=== PATIENT | male | born 2000 | race Two or more races ===

== ENCOUNTER 2025-01-30 15:20 | Emergency (ER) | payer MEDICAID, SELFPAY ==
[2025-01-30 15:41] VITALS: BP 137/83; PULSE 58; RESP 18; TEMP 37.1; O2SAT 97; BMI 26.4
--- NOTE | 2025-01-30 15:45 | XR_ITS ---
Examination: Hand, right 3 views Technique: Hand AP, oblique, lateral 3 views right Date and time of exam: January 30, 2025 1551 hours INDICATIONS: Injury to the right hand today, right hand pain FINDINGS: No acute fracture Or dislocation No foreign body IMPRESSION: No acute fracture
--- NOTE | 2025-01-30 15:45 | EDNOTE_ITS ---
Upper Extremity Injury RME/HPI General Chief Complaint: Extremity Injury, Upper Stated Complaint: RIGHT HAND PAIN Time Seen by Provider: 01/30/25 15:23 Arrival date/time: 01/30/25 15:20 24-year-old male with no significant medical problems presents to the emergency from today for complaints of injury to the right hand patient reports he punched something today patient has abrasions to the right hand and reports pain with moving his fingers Limitations: no limitations Related Data Previous Rx's ?Medication ?Instructions ?Recorded bacitracin 500 unit/gram topical 1 applic topical TID 7 days #28.4 01/30/25 ointment grams ibuprofen 800 mg tablet 800 mg PO TID PRN pain #30 t abs 01/30/25 Allergies Allergy/AdvReac Type Severity Reaction Status Date / Time No Known Allergies Allergy Verified 01/30/25 15:22 Review of Systems Review of Systems Systems Reviewed: All systems reviewed, normal except as documented Constitutional Constitutional: Reports system reviewed and no additional complaints, except as documented, Denies fever(s) and Denies headache(s) Eyes Eyes: Reports system reviewed and no additional complaints, except as documented and Denies blurry vision ENT Ears, Nose, Mouth, and Throat: Reports system reviewed and no additional complaints, except as documented, Denies headache(s), Denies nasal congestion and Denies nasal discharge Cardiovascular Cardiovascular: Reports system reviewed and no additional complaints, except as documented, Denies chest pain and Denies dyspnea Respiratory Respiratory: Reports system reviewed and no additional complaints, except as documented, Denies chest congestion, Denies cough and Denies dyspnea Gastrointestinal Gastrointestinal: Reports system reviewed and no additional complaints, except as documented and Denies abdominal pain Musculoskeletal Musculoskeletal: Reports system reviewed and no additional complaints, except as documented, Reports arthralgias, Denies deformity, Denies joint swelling and Reports other (Pain right hand) Integumentary/Breasts Skin/Breast: Reports system reviewed and no additional complaints, except as documented, Denies rash and Reports wounds (Abrasions right hand) Neurologic Neurologic: Reports system reviewed and no additional complaints, except as documented, Reports as per HPI and Denies headache(s) Past Medical History Social History SMOKING STATUS: Never smoker ED Exam General Limitations: Present no limitations General appearance: Present alert and in no apparent distress Head Head exam: Present atraumatic Eye Eye exam: Present normal appearance, PERRL and EOMI ENT ENT exam: Present normal exam, normal oropharynx and mucous membranes moist Neck Neck exam: Present normal inspection, full ROM and trachea midline Chest Chest inspection: Present normal inspection and symmetric chest wall rise Respiratory Respiratory exam: Present normal lung sounds bilaterally Cardiovascular Cardiovascular exam: Present regular rate, normal rhythm and normal heart sounds Abdominal Exam Abdominal exam: Present soft and normal bowel sounds Extremities Exam Extremities exam: Present tenderness, normal capillary refill and joint swelling Back Exam Back exam: Present normal inspection and full ROM Neurological Exam Neurological exam: Present alert, oriented X3 and CN II-XII intact Psychiatric Psychiatric exam: Present normal affect and normal mood Skin Skin exam: Present warm, dry and other (Abrasions right hand) Course Quality Measures none Orders Category Date Time Status XR hand comp RT min 3V Stat Exams 01/30/25 15:45 Completed Vital Signs Vital signs: Vital Signs Temperature 98.7 F 01/30/25 15:41 Pulse Rate 58 L 01/30/25 15:41 Respiratory Rate 18 01/30/25 15:41 Blood Pressure 137/83 H 01/30/25 15:41 Pulse Oximetry (%) 97 01/30/25 15:41 Oxygen Delivery Method Room Air 01/30/25 15:41 O2 saturation 97% room air with normal limits Extremity Injury MDM Narrative MDM Narrative:: 24-year-old male with no significant medical problems presents to the emergency from today for complaints of injury to the right hand patient reports he punched something today patient has abrasions to the right hand and reports pain with moving his fingers On exam patient is no snuffbox tenderness patient can move his fingers without difficulty but does report pain right 4th and 5th digits Wounds were cleansed dressing applied patient discharged home with pain medication Patient discharged home in no distress to follow-up with primary care doctor in the next 24 to 48 hours and for any worsening symptoms to return to the ER immediately Patient data External records reviewed:: [facility] previous records Clinical information provided by:: patient Social determinants that could affect healthcare access:: none Patient has the following chronic illnesses:: None How is presenting disease/condition affected by chronic disease/condition?: no chronic disease Evaluation data The following diagnostics were reviewed and interpreted by me:: radiology exam(s) Lab and/or radiology exams considered but not ordered:: Obtain Interpretation Summary: By me Medications / Prescriptions Medications or Prescriptions considered but not ordered:: Given Medication administrations:: Given Consultations Consultation(s) initiated? (list below): No Diagnosis Upper Extremity Injury Differential Diagnosis: other (Hand sprain, hand fracture, abrasions) Most likely diagnosis given after review of the tests above:: Abrasion right hand, hand sprain Admission Indicated Admission indicated?: not indicated Admission Request Was there a request for admission?: No Disposition Plan Disposition Plan: Discharge Discharge Attestation Discharge Attestation: The patient and all family members were given an opportunity to ask questions and understood the discharge instructions. Discharge instructions specifically effects, indications for sooner follow up or return to the emergency department, and the expected course of current diagnosis. Patient condition: Stable Discharge Plan Plan Patient Disposition: HOME (Self Care) Discharge Disposition comment: Stable Prescriptions/Referrals Prescriptions/Med Rec: New bacitracin 500 unit/gram ointment 1 applic topical TID 7 Days Qty: 28.4 0RF ibuprofen 800 mg tablet 800 mg PO TID PRN (Reason: pain) Qty: 30 0RF Referrals: Tess Minor FNP ([facility]) [Primary Care Provider] - 01/31/25 Problem List Clinical Impression: Abrasion of hand, right, Contusion of hand, right Patient/Caregiver Discharge Instructions Education Materials: ED Abrasions Additional Instructions: Please follow up with your primary care doctor in the next 24-48hrs for any worsening symptoms return here immediately Print Language: Polish Stand Alone Forms: Yaa Award Info., Patient Portal Info Letter ARPITA/IHSAN Supervising Physician ARPITA/IHSAN Supervising Physician: Dr. flores
== END 2025-01-30 17:31 | disposition home or self-care (01) ==
PROVIDERS: Emergency Provider Family Medicine; PCP Nurse Practitioner Primary Care
DX: S60.511A Abrasion of right hand, initial encounter (principal); S60.221A Contusion of right hand, initial encounter; W22.8XXA Striking against or struck by other objects, initial encounter
CPT/HCPCS: 73130; 99283